=== PATIENT | female | born 2000 | race Caucasian/White ===

== ENCOUNTER 2020-06-18 09:11 | Emergency (ER) | payer SELFPAY ==
[~2020-06-18] VITALS: Ht 157.5 cm; Wt 46.6 kg
[2020-06-18 09:19] VITALS: BP 124/76
[2020-06-18] MEDS ORDERED: ONDANSETRON ODT 4 MG ONE (09:46)
[2020-06-18] MEDS ORDERED: DEXAMETHASONE 4 MG/ML, 1ML ONE (09:46)
[2020-06-18] MEDS ORDERED: ONDANSETRON ODT 4 MG PO ONE (10:00)
[2020-06-18] MEDS ORDERED: DEXAMETHASONE 4 MG/ML, 1ML PO ONE (10:00)
--- NOTE | 2020-06-18 10:00 | NUR ---
PT STATES THAT SHE IS UNABLE TO EAT FOR 3 DAYS BECAUSE IT HURTS TO SWALLOW AND HAS NAUSEA. MEDICATED NOTED ON APR FOR SAME
== END 2020-06-18 11:23 | disposition home or self-care (01) ==
LOC: ED 11:15
DX: J36 Peritonsillar abscess (principal); R11.2 Nausea with vomiting, unspecified
CPT/HCPCS: 87081; 87880; 99283; J1100; Q0162